=== PATIENT | female | born 1950 | race Caucasian/White ===

== ENCOUNTER → 2017-12-14 | Outpatient (CLI) | payer MEDICARE, OTHER ==
[~2017-12-14] MED LIST: ASPIRIN E.C. 8181 MG PO; ATENOLOL50 MG PO; BENICAR40 MG PO; CITALOPRAM20 MG PO; HYDROCHLOR50 MG PO; LYSINE PO; METFORMIN500 MG PO; TYLENOL 325MG325 MG PO
== END ==
LOC: COL.LAB 15:54
DX: Z01.812 Encounter for preprocedural laboratory examination (principal); M16.12 Unilateral primary osteoarthritis, left hip

== ENCOUNTER 2021-06-29 17:02 | Inpatient (IN) | payer MEDICARE ==
[~2021-06-29] VITALS: Ht 165.2 cm; Wt 118.0 kg
[~2021-06-29 17:02] MED LIST changes: +NORCO 325 MG-51 TAB PO
[2021-07-06] VITALS (11 sets, daily range): BP systolic 119–175; BP diastolic 58–93; PULSE 68–90; TEMP 98.1–98.6
[2021-07-06] MEDS ORDERED: COZAAR100 MG PO (09:05)
[2021-07-06] MEDS ORDERED: TOPROL XL100 MG PO (09:06)
[2021-07-06] MEDS ORDERED: NORVASC 5MG5 MG/TAB PO (09:06)
[2021-07-06] MEDS ORDERED: PRESERVISION1 SGL PO (09:07)
[2021-07-06] MEDS ORDERED: VITAMIN D31000 I1 PO (09:08)
[2021-07-06] MEDS ORDERED: BENADRYL25 M2 PO (09:09)
[2021-07-06] MEDS ORDERED: MULTIPLE VITAMI1 TA5 PO (09:09)
[2021-07-06] MEDS ORDERED: NYSTATIN POWDER15 GM TOP (09:10)
[2021-07-06] MEDS ORDERED: ZOVIRAX800 MG PO (09:10)
[2021-07-06] MEDS ORDERED: ELIQUIS 5MG PO (09:11)
[2021-07-06] MEDS ORDERED: BACTROBAN 22GM22 GM TP (09:12)
[2021-07-06 09:37] LABS: HEMOGLOBIN 12.2 g/dl (12.5-16.0); MEAN CELL VOLUME 83 fl (80.0-100.0); MEAN CORPUSCULAR HEMOGLOBIN 27 pg (27.0-31.0); MEAN CORPUSCULAR HGB CONC 32 g/dl (33.0-37.0); MEAN PLATELET VOLUME 10.6 fl (7.4-10.4); PLATELET COUNT 292 K/mm3 (130-400); RED BLOOD COUNT 4.56 M/mm3 (4.10-5.30); REDCELL DISTRIBUTION WIDTH-CV 14.8 % (11.5-14.5)
[2021-07-06 09:44] LABS: INR 1.5 (0.8-3.0)
[2021-07-06 09:47] LABS: PARTIAL THROMBOPLASTIN TIME 40.3 SECONDS (26.0-37.0)
[2021-07-06 09:51] LABS: CALCIUM 9.3 mg/dL (8.4-10.2); CREATININE, serum 0.75 mg/dL (0.57-1.11); MAGNESIUM 1.8 mg/dL (1.6-2.6); POTASSIUM 3.8 mmol/L (3.5-4.5)
[2021-07-06 10:12] LABS: THYROID STIMULATING HORMONE 1.418 uIU/mL (0.350-4.940)
--- NOTE | 2021-07-06 10:46 | NUR ---
Initial visit; Patient thanked Sales Lead Generator for looking in on her prior to her procedure and offering a prayer for a successful procedure and rapid and thorough healing.
--- NOTE | 2021-07-06 11:20 | NUR ---
report from [place] RN after Yao/Cardioversion, pt is awake and alert. in room now and Dr Aponte into see them, pt was converted at 200j x1, post EKG done at this time. Pt placed on Tele. call light in reach
--- NOTE | 2021-07-06 11:50 | NUR ---
pt takes water, initial sotolol 80mg po given as ordered, lunch ordered by pt
--- NOTE | 2021-07-06 12:30 | NUR ---
pt watches tv, waiting for transfer to 3rd floor, no c/o
--- NOTE | 2021-07-06 13:10 | NUR ---
report called to Kat [facility] 3rd floor, pt has tele on, transfered to 316 via w/c with , food tray in room. pt sits up on side of bed, no c/o VSS, call light in reach
--- NOTE | 2021-07-06 13:30 | NUR ---
Patient transferred to the floor to room 316 from Express unit. Denies any chest pain, SOA, or further needs at this time. VSS. Patient A&O. Tolerating food and drink. Call light in reach. Tele on.
[2021-07-06] MEDS ORDERED: ZOVIRAX400 MG PO (14:55)
--- NOTE | 2021-07-06 18:00 | NUR ---
Assessment completed. [facility] rec and allergies reviewed. VSS. Tele on. Patient denies any chest pain, discomfort, SOA, or further needs. Magnesium and potassium being replaced per orders. Call light in reach.
--- NOTE | 2021-07-06 20:30 | NUR ---
Initial shift assessment done- denies chest pain/SOB, heart palpitaions. Tele on- SR 60-70,s. No requests, watching TV. Will have another EKG in AM.
[2021-07-07] VITALS (7 sets, daily range): BP systolic 132–151; BP diastolic 56–88; PULSE 73–94; TEMP 97.8–98.9
--- NOTE | 2021-07-07 05:56 | NUR ---
Quiet night- no requests, Tele on HR 73 at this time, sinus.
--- NOTE | 2021-07-07 07:00 | NUR ---
Report with BALDEMAR Diaz. Pt resting in bed, removing CPAP mask as we are in room, denies pain or needs. Call light in reach.
[2021-07-07 07:26] LABS: BASO # 0.1 K/mm3 (0.0-0.2); BASO % 0.6 % (0.0-2.0); EOS # 0.2 K/mm3 (0.0-0.7); EOS % 2.7 % (0-4.0); GRAN # 6.1 K/mm3 (1.4-6.5); GRAN % 68.4 % (42.2-75.2); HEMOGLOBIN 11.4 g/dl (12.5-16.0); LYMPH # 1.7 K/mm3 (1.2-3.4); LYMPH % 18.9 % (20.0-51.0); MEAN CELL VOLUME 84 fl (80.0-100.0); MEAN CORPUSCULAR HEMOGLOBIN 27 pg (27.0-31.0); MEAN CORPUSCULAR HGB CONC 32 g/dl (33.0-37.0); MEAN PLATELET VOLUME 11.1 fl (7.4-10.4); MONO # 0.8 K/mm3 (0.1-0.6); MONO % 9.2 % (1.7-9.3); PLATELET COUNT 287 K/mm3 (130-400); RED BLOOD COUNT 4.29 M/mm3 (4.10-5.30); REDCELL DISTRIBUTION WIDTH-CV 15.1 % (11.5-14.5)
[2021-07-07 07:30] LABS: HEMATOCRIT 36.2 % (37.0-47.0)
[2021-07-07 08:11] LABS: CREATININE, serum 0.67 mg/dL (0.57-1.11); MAGNESIUM 2.2 mg/dL (1.6-2.6); POTASSIUM 3.9 mmol/L (3.5-4.5)
--- NOTE | 2021-07-07 08:30 | NUR ---
Assessment complete. Pt resting in bed, A&O x 4, denies pain at this time. Saline lock IV to right forearm without s/s of complications. Physical assessment unremarkable. No further needs reported. Call light in reach.
--- NOTE | 2021-07-07 12:39 | NUR ---
Follow-up visit; Patient thanked Wound Care Coordinator for checking in on her again today and reported that she had a successful 'procedure' and will be going home tomorrow.
--- NOTE | 2021-07-07 14:12 | NUR ---
Zinc Etcher met with patient to discuss discharge planning. Patient lives in [place] with her , Amador (ph#[phone]) and sees Dr. Jaz Dickerson for primary care. Patient obtains medications from [facility] with no difficulties, however is concerned about the cost of any new medications she may be prescribed at discharge. Patient uses a CPAP and no other DME. Patient is independent with ADLS and plans to return home upon discharge. Patient advised she has DPOA-HC which designates her and daughters. Discharge Plan: Home
--- NOTE | 2021-07-07 16:27 | NUR ---
Pt out of shower and telemetry replaced. Pt denies pain or needs at this time. 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 Uneventful shift. Call light in reach.
[2021-07-08 03:38] VITALS: BP 149/65; PULSE 73; TEMP 98.1
[2021-07-08 07:30] VITALS: BP 141/75; PULSE 84; TEMP 98.3
[2021-07-08 07:50] LABS: BASO # 0.1 K/mm3 (0.0-0.2); BASO % 0.5 % (0.0-2.0); EOS # 0.3 K/mm3 (0.0-0.7); EOS % 3.1 % (0-4.0); GRAN # 6.4 K/mm3 (1.4-6.5); GRAN % 69.6 % (42.2-75.2); HEMOGLOBIN 11.4 g/dl (12.5-16.0); LYMPH # 1.6 K/mm3 (1.2-3.4); MEAN CELL VOLUME 84 fl (80.0-100.0); MEAN CORPUSCULAR HEMOGLOBIN 27 pg (27.0-31.0); MEAN CORPUSCULAR HGB CONC 32 g/dl (33.0-37.0); MONO # 0.8 K/mm3 (0.1-0.6); MONO % 8.4 % (1.7-9.3); PLATELET COUNT 285 K/mm3 (130-400); REDCELL DISTRIBUTION WIDTH-CV 14.9 % (11.5-14.5)
[2021-07-08 07:54] LABS: HEMATOCRIT 36.1 % (37.0-47.0)
[2021-07-08 08:09] LABS: CALCIUM 9.1 mg/dL (8.4-10.2); CREATININE, serum 0.67 mg/dL (0.57-1.11); MAGNESIUM 1.9 mg/dL (1.6-2.6); POTASSIUM 3.7 mmol/L (3.5-4.5)
[2021-07-08 11:21] VITALS: BP 158/78; PULSE 86; TEMP 98.6
[2021-07-08] MEDS ORDERED: BETAPACE 80MG80 MG PO (12:06)
--- NOTE | 2021-07-08 13:17 | NUR ---
PT [facility] HOME PER ORDERS. D/C INSTRUCTIONS, MEDICATIONS AND FOLLOW UP REVEIWED WITH PT QUESTIONS AND CONCERNS ADDRESSED
== END 2021-07-08 13:03 | disposition home or self-care (01) | DRG 310 ==
LOC: MEDICAL 07-06 08:37 → INPTSU 07-06 08:37 → COL.CAR 07-06 08:45 → MEDICAL 07-06 08:45 → EDSTATUS 07-06 08:45 → MEDICAL 07-06 15:10 → SURG 07-07 05:20 → MEDICAL 07-07 05:20
PROVIDERS: ADMIT Internal Medicine Adult Congenital Heart Disease
PROC: 5A2204Z Restoration of Cardiac Rhythm, Single (ICD-10-PCS; principal; 2021-07-06)
DX: I48.19 Other persistent atrial fibrillation (principal); I10 Essential (primary) hypertension; M19.90 Unspecified osteoarthritis, unspecified site; E66.01 Morbid (severe) obesity due to excess calories; Z68.36 Body mass index [BMI] 36.0-36.9, adult
CPT/HCPCS: J2704; J3475